=== PATIENT | male | born 2005 | race Caucasian/White ===

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

== ENCOUNTER 2024-02-02 05:47 | Day surgery (SDC) | payer BC, MEDICAID, SELFPAY ==
[2024-02-02] VITALS (11 sets, daily range): BP systolic 85–131; BP diastolic 53–91; PULSE 68–100; RESP 15–18; TEMP 36.1–36.6; O2SAT 96–100; BMI 21.7
[2024-02-02] MEDS: sodium chloride 0.9% 1,000 ML 30 ML IV (06:29)
--- NOTE | 2024-02-02 06:39 | ANES.PREANE2 ---
Pre-Anesthetic Assessment Height/Weight: Height 1.73 m Weight 64.864 kg Temp Pulse Resp BP Pulse Ox O2 Del Method 97.1 F L 68 15 130/91 100 Room Air 02/02/24 06:05 02/02/24 06:05 02/02/24 06:05 02/02/24 06:05 02/02/24 06:05 02/02/24 06:05 Operation Date: 02/02/24 07:00 Proposed Procedures p excision or pilonidal cyst with cleft lift 16458, L05.91(Not Applicable) - Dionisio Ceballos DO Familial anesthetic complications: None Was Beta Shira taken within 24 hours: N/A Was Clonidine taken within 24 hours: N/A Last intake: Intake Last Liquid Date 02/01/24 Last Liquid Time 17:00 Last Solid Date 02/01/24 Last Solid Time 19:00 Social No alcohol and No tobacco Exam alert, oriented x 3, clear to auscultation bilaterally and regular rate & rhythm Airway Mallampati: Class I Dentition: full Anesthetic Plan ASA status: 1 Anesthesia: General Risk of > 500 ml blood loss (7ml/kg in children): No Medications/Allergies Home Medications Medication Instructions Recorded Confirmed Last Taken Type No Known Home Medications 02/01/24 02/01/24 Unknown History Allergies Allergy/AdvReac Type Severity Reaction Status Date / Time Influenza Virus Vaccines Allergy ADR-Vomitin Verified 02/02/24 06:37 g Current Medications Generic Name Dose Route Start Last Admin Trade Name Freq PRN Reason Stop Dose Admin Sodium Chloride 1,000 mls @ 30 mls/hr 02/02/24 06:15 02/02/24 06:29 Sodium Chloride 0.9% IV 02/03/24 06:14 30 mls/hr .Q24H MAYE Administration PFSH Anesthesia Surgical History History of excision of pilonidal cyst Family History Grandmother Colon cancer Social History Smoking and tobacco/nicotine status: never used tobacco/nicotine Alcohol intake: never Data Anesthesia Cardiac Studies: No Data to Display
--- NOTE | 2024-02-02 07:03 | W.PM.OPSUD ---
Surgery/Procedure H&P Update DATE OF PROCEDURE: February 02, 2024 DATE H&P PERFORMED: 01/22/24 H&P UPDATE INFORMATION: I have reviewed H&P completed within last 30 days, I have examined patient prior to procedure and No changes to prior documentation PLANNED PROCEDURE: Operation Date: 02/02/24 07:00 Proposed Procedures p excision or pilonidal cyst with cleft lift 75442, L05.91(Not Applicable) - Dionisio Ceballos DO
[2024-02-02] MEDS: piperacillin-tazobactam 3.375 GM in sodium chloride 0.9% (plus) 50 ML IV (07:08)
[2024-02-02] MEDS: lidocaine-epi 2% PF 1:200,000 20 mL SDV XX (07:35)
--- NOTE | 2024-02-02 09:29 | PM.OP ---
Operative Report Date of procedure: February 02, 2024 Surgeon: Dionisio Ceballos DO Brief History: This is a very pleasant 18-year-old gentleman who presented to my office with a recurrent pilonidal cyst. He underwent excision of pilonidal cyst with cleft lift procedure 5 months prior. He is very hairy at his cleft and this area was not hairless when I saw him in office. Excision of pilonidal cyst with cleft lift procedure was indicated. The risks and benefits were explained and documented Procedure: Pre-op diagnosis: Recurrent pilonidal cyst Post-op diagnosis: same Procedure done: Cleft lift procedure (86035) with creation of bilateral fasciocutaneous flaps (94682) and excision of pilonidal cyst (47550) Implants: 15 [place] Alden drain Specimens removed/disposition: Elliptical skin and subcutaneous excision with pilonidal cyst Surgeon: Dionisio Ceballos DO Anesthesia: General and Local Estimated blood loss (mL): 5 Complications: None apparent Procedure: Patient was wheeled operative room and general endotracheal intubation was achieved on the [facility] by the department of anesthesia. The patient was then placed prone on the OR table. Preoperatively the bilateral buttocks were pressed together to identify the area where the skin touches. This area was marked. The buttocks were then taped spread apart. The inner ruma cleft was inspected prepped and draped in usual sterile fashion. A timeout was performed. All present were in agreement. Pilonidal sinus was located more to the right of the inner ruma cleft. An elliptical excision measuring 4 cm in width was performed over the pilonidal sinus from just left midline and into the right buttock. Electrocautery was then used to cut the fascia and dissect down through the subcutaneous tissue and around the pilonidal sinus, removing the sinus en bloc. The cyst had multiple fingers extending bilaterally and inferiorly. The excision had to be extended both left and right to encompass the entire cyst. A fasciocutaneous flap was then created on the left side with Bovie cautery in cautery mode, going back 8 cm. The thickness of the flap was just over 1 cm. In order to approximate the tissues, a flap also had to be created on the right side, going back 8 cm with a 1 cm thickness. Hemostasis was achieved electrocautery. The subcutaneous tissue was then approximated using 2-0 Vicryl in a simple interrupted fashion. A 15 [place] Alden drain was then placed into the wound coming out of the left buttock. This was sutured in place with 3-0 silk. The dermis was then approximated with interrupted 3-0 Vicryl. Skin was closed with running 4-0 Monocryl. Dermabond was applied. A drain sponge was applied around the drain. Tissue came together off midline and without tension. Patient tolerated procedure well.
--- NOTE | 2024-02-02 11:10 | ANE.PACU2 ---
Inpatient post-anesthesia follow up: Airway intact: Yes Vital signs: Temperature 98 F Pulse Rate 83 Respiratory Rate 16 Blood Pressure 130/73 Pulse Oximetry 99 Oxygen Delivery Me thod Room Air Oxygen Flow Rate Fraction of Inspir ed Oxygen Hydration adequate: Yes Nausea and vomiting: No Pain level: 1 Mental status: Baseline
== END 2024-02-02 11:13 | disposition home or self-care (01) ==
PROVIDERS: PCP Family Medicine; Visit Provider Surgery
PROC: (CPT 11772; principal; 2024-02-02 07:00)
DX: L05.91 Pilonidal cyst without abscess (principal)
CPT/HCPCS: 11772; 15570; 88304; J1170; J1885; J2250; J2543; J2704; J3010; J3490; J7030